=== PATIENT | female | born 1970 | race Caucasian/White ===

== ENCOUNTER 2020-11-26 19:55 | Emergency (ER) | payer SELFPAY ==
[~2020-11-26] VITALS: Ht 170.2 cm; Wt 79.4 kg
[2020-11-26 19:58] VITALS: BP 127/76; Ht 170.2 cm; Wt 79.4 kg
== END 2020-11-26 21:00 | disposition home or self-care (01) ==
LOC: ED 19:55
DX: J45.901 Unspecified asthma with (acute) exacerbation (principal); Z20.828 Contact with and (suspected) exposure to other viral communicable diseases
CPT/HCPCS: U0003